=== PATIENT | male | born 1965 | race Caucasian/White ===

== ENCOUNTER 2017-03-24 11:14 | Emergency (ER) | payer MEDICARE, MEDICAID ==
[~2017-03-24] VITALS: Ht 172.7 cm; Wt 115.0 kg
[~2017-03-24 11:14] MED LIST: IBUP-1984 PO; OXYC-150 PO; PREG50CA PO
[2017-03-24] MEDS ORDERED: CIPR-259 PO (12:26)
[2017-03-24 13:33] VITALS: BP 151/94
== END 2017-03-24 13:56 | disposition home or self-care (01) ==
LOC: ER 11:15
DX: S61.211A Laceration without foreign body of left index finger without damage to nail, initial encounter (principal); N45.1 Epididymitis; N43.41 Spermatocele of epididymis, single; N18.6 End stage renal disease; G62.9 Polyneuropathy, unspecified; G89.29 Other chronic pain; Z99.2 Dependence on renal dialysis; Z94.0 Kidney transplant status; W18.30XA Fall on same level, unspecified, initial encounter; Y93.89 Activity, other specified; Y92.89 Other specified places as the place of occurrence of the external cause; Y99.8 Other external cause status
CPT/HCPCS: 76870; 99284

== ENCOUNTER 2017-03-31 12:07 | Emergency (ER) | payer MEDICARE, MEDICAID ==
[~2017-03-31] VITALS: Ht 172.7 cm; Wt 111.0 kg
[~2017-03-31 12:07] MED LIST changes: +CIPR-259 PO; -IBUP-1984 PO
[2017-03-31] MEDS ORDERED: TETanus/Pertussis (Acell)/Diphther VAC/PF (Tdap-Adult) 0.5ml syringe IM ONE (16:05)
[2017-03-31 16:24] VITALS: BP 178/112
== END 2017-03-31 16:25 | disposition home or self-care (01) ==
LOC: ER 12:08
DX: N50.89 Other specified disorders of the male genital organs (principal); E87.79 Other fluid overload; G62.9 Polyneuropathy, unspecified; N18.9 Chronic kidney disease, unspecified; G89.29 Other chronic pain; Z99.2 Dependence on renal dialysis; Z94.0 Kidney transplant status
CPT/HCPCS: 90471; 90715; 99283

== ENCOUNTER 2017-04-11 20:40 | Emergency (ER) | payer MEDICARE, MEDICAID ==
[~2017-04-11] VITALS: Ht 172.7 cm; Wt 109.0 kg
[~2017-04-11 20:40] MED LIST changes: -CIPR-259 PO
[2017-04-11 21:09] LABS: BASOPHILS % (AUTO) 0.2 % (0-1); EOSINOPHILS # (AUTO) 0.2 X10'3 (0-0.9); EOSINOPHILS % (AUTO) 2.3 % (0-6); HEMATOCRIT 30.9 % (42.0-52.0); HEMOGLOBIN 10.3 g/dl (14.0-17.9); LYMPHOCYTES # (AUTO) 1.2 X10'3 (1.1-4.8); LYMPHOCYTES % (AUTO) 16.8 % (21-51); MEAN CORPUSCULAR HEMOGLOBIN 31.2 PG (27.0-31.0); MEAN CORPUSCULAR HGB CONC 33.4 % (33.0-36.5); MEAN CORPUSCULAR VOLUME 93.5 FL (78-98); MEAN PLATELET VOLUME 6.9 FL (7.4-10.4); MONOCYTES # (AUTO) 0.4 X10'3 (0-0.9); MONOCYTES % (AUTO) 5.9 % (2-12); NEUTROPHILS # (AUTO) 5.1 X10'3 (1.8-7.7); NEUTROPHILS % (AUTO) 74.8 % (42-75); PLATELET COUNT 154 X10'3 (140-440); RED BLOOD COUNT 3.31 X10'6 (4.70-6.10); RED CELL DISTRIBUTION WIDTH 15.2 % (11.5-14.5); WHITE BLOOD COUNT 6.9 X10'3 (4.5-11.0)
[2017-04-11] MEDS ORDERED: mag hydrox/Alum hydrox/simeth 30ml oral suspension PO ONE (21:15)
[2017-04-11] MEDS ORDERED: famotidine 20mg tablet PO ONE (21:15)
[2017-04-11 21:20] LABS: PARTIAL THROMBOPLASTIN TIME 24 SECONDS (22-32); PROTHROMBIN TIME 10.4 SECONDS (9.0-12.0)
[2017-04-11 21:23] LABS: ALANINE AMINOTRANSFERASE 34 U/L (12-78); ALBUMIN 3.3 G/DL (3.4-5.0); ALBUMIN/GLOBULIN RATIO 0.9 (1.1-1.5); ALKALINE PHOSPHATASE 118 IU/L (46-116); ANION GAP 6 (8-16); ASPARTATE AMINO TRANSFERASE 24 U/L (10-37); BILIRUBIN,TOTAL 0.6 MG/DL (0.1-1.0); BLOOD UREA NITROGEN 39 MG/DL (7-18); BUN/CREATININE RATIO 6.3 (5.4-32.0); CALCIUM 8.8 MG/DL (8.5-10.1); CHLORIDE 93 MMOL/L (99-107); POTASSIUM 5.3 MMOL/L (3.5-5.1); SODIUM 131 MMOL/L (135-145); TOTAL CARBON DIOXIDE 31.8 MMOL/L (24-32); TOTAL PROTEIN 7.1 G/DL (6.4-8.2); eGFR 10 ML/MIN
[2017-04-11 21:25] LABS: GLUCOSE 489 MG/DL (70-104)
[2017-04-11] MEDS ORDERED: insulin regular, human 10 units/0.1 ml syringe IV ONE (21:30)
[2017-04-11] MEDS ORDERED: insulin regular, human 10 units/0.1 ml syringe SQ ONE (21:40)
[2017-04-11 22:36] VITALS: BP 150/68
== END 2017-04-11 22:41 | disposition home or self-care (01) ==
LOC: ER 20:41
DX: K21.9 Gastro-esophageal reflux disease without esophagitis (principal); N50.89 Other specified disorders of the male genital organs; R60.0 Localized edema; I12.0 Hypertensive chronic kidney disease with stage 5 chronic kidney disease or end stage renal disease; N18.6 End stage renal disease; Z99.2 Dependence on renal dialysis; Z94.0 Kidney transplant status; G89.29 Other chronic pain; G62.9 Polyneuropathy, unspecified; Z56.0 Unemployment, unspecified; Z88.5 Allergy status to narcotic agent
CPT/HCPCS: 36415; 71045; 80053; 84484; 85025; 85610; 85730; 93005; 96372; 99285; J1815

== ENCOUNTER 2019-05-07 06:20 | Day surgery (SDC) | payer MEDICARE, OTHER, MEDICAID ==
[~2019-05-07] VITALS: Ht 170.2 cm; Wt 99.4 kg
[2019-05-07] VITALS (8 sets, daily range): BP systolic 100–147; BP diastolic 61–81
[2019-05-07] MEDS ORDERED: normal saline 1000ml 1,000 ML IV SCH ×2 (06:50→16:54)
[2019-05-07] MEDS ORDERED: FOLI1TAB34 PO (07:01)
[2019-05-07] MEDS ORDERED: PREG50CA PO (07:01)
[2019-05-07] MEDS ORDERED: LANT1000 PO (07:01)
[2019-05-07] MEDS ORDERED: INSU100C10 SQ (07:01)
[2019-05-07] MEDS ORDERED: INSU100V9 SQ (07:01)
[2019-05-07] MEDS ORDERED: NITR0.4T51 SL (07:01)
[2019-05-07 07:41] LABS: ALBUMIN 3.3 G/DL (3.4-5.0); ANION GAP 19 (8-16); BLOOD UREA NITROGEN 68 MG/DL (7-18); BUN/CREATININE RATIO 6.3 (5.4-32.0); CALCIUM 7.2 MG/DL (8.5-10.1); CHLORIDE 95 MMOL/L (99-107); CREATININE 10.88 MG/DL (0.60-1.10); GLUCOSE 143 MG/DL (70-104); SODIUM 138 MMOL/L (135-145); eGFR 5 ML/MIN
[2019-05-07 07:45] LABS: POTASSIUM 6.8 MMOL/L (3.5-5.1)
[2019-05-07] MEDS ORDERED: insulin regular, human 10 units/0.1 ml syringe IV ONE (08:15)
[2019-05-07] MEDS ORDERED: albuterol 2.5 MG/3 ML nebule NEB ONE (08:15)
[2019-05-07] MEDS ORDERED: calcium chloride 100 MG/1 ML inj IV ONE (08:15)
[2019-05-07] MEDS ORDERED: dextrose 50%-water 50ml dispensing syringe IV ONE (08:15)
[2019-05-07] MEDS ORDERED: tPA-cathflo 2 MG/2 ml IV flush ONE ×3 (09:44→13:27)
[2019-05-07] MEDS ORDERED: albuterol 2.5 MG/3 ML nebule CONTNEB ONE (09:45)
[2019-05-07] MEDS ORDERED: midazolam 2 mg/2 ml injection ONE (12:37)
[2019-05-07] MEDS ORDERED: fentaNYL/PF 50MCG/1 ML 2ML syringe ONE ×2 (12:38→13:50)
[2019-05-07] MEDS ORDERED: LIDOcaine 1%/PF 5ML 10 MG/ML VIAL ONE (12:53)
[2019-05-07] MEDS ORDERED: iohexol 300mg/ml 100ml inj. ONE ×2 (12:53→14:47)
[2019-05-07] MEDS ORDERED: heparin 1,000 UNITS/NS 500ml 500 ML ONE ×3 (13:02→15:31)
[2019-05-07] MEDS ORDERED: heparin 1,000unit/ml 10ml vial 10 ML ONE (14:44)
--- NOTE | 2019-05-07 17:50 | NUR ---
Dr. Haney at bedside to remove purse string suture. Upper string removed per MD, lower string continue to monitor for 15 minutes per MD prior to removing. No s/s bleeding to left arm at this time.
[2019-05-07] MEDS ORDERED: furosemide 40mg/4ml inj IV SCH (20:00)
== END 2019-05-07 19:30 | disposition home or self-care (01) ==
LOC: SSTAY O 06:20
PROVIDERS: ATTEND Radiology Vascular & Interventional Radiology
DX: T82.868A Thrombosis due to vascular prosthetic devices, implants and grafts, initial encounter (principal); E11.22 Type 2 diabetes mellitus with diabetic chronic kidney disease; N18.6 End stage renal disease; Z79.4 Long term (current) use of insulin; Z79.899 Other long term (current) drug therapy; Y83.2 Surgical operation with anastomosis, bypass or graft as the cause of abnormal reaction of the patient, or of later complication, without mention of misadventure at the time of the procedure; Y92.89 Other specified places as the place of occurrence of the external cause
CPT/HCPCS: 36415; 36905; 80048; 82948; 84132; 94640; 94760; 99152; 99153; C1725; C1769; C1894; J1644; J1815; J2250; J2997; J3010; J7030; Q9967

== ENCOUNTER 2019-10-24 11:56 | Day surgery (SDC) | payer MEDICARE, OTHER, MEDICAID ==
[~2019-10-24] VITALS: Ht 172.7 cm; Wt 95.1 kg
[~2019-10-24 11:56] MED LIST changes: +FOLI1TAB34 PO; +INSU100C10 SQ; +INSU100V9 SQ; +LANT1000 PO; +NITR0.4T51 SL
[2019-10-24 12:10] VITALS: BP 70/54
[2019-10-24] MEDS ORDERED: normal saline 1000ml 1,000 ML IV SCH (12:20)
[2019-10-24] MEDS ORDERED: FAMO40TA58 PO (12:27)
[2019-10-24] MEDS ORDERED: MIDO10TA PO (12:30)
[2019-10-24] MEDS ORDERED: OXYC-658 PO ×2 (12:31→12:32)
[2019-10-24] MEDS ORDERED: LYR25C PO (12:32)
[2019-10-24] MEDS ORDERED: ONDA4TAB6 PO (12:33)
[2019-10-24 13:50] LABS: BASOPHILS # (AUTO) 0.1 X10'3 (0-0.2); BASOPHILS % (AUTO) 0.9 % (0-1); EOSINOPHILS # (AUTO) 0.1 X10'3 (0-0.9); HEMATOCRIT 28.3 % (42.0-52.0); HEMOGLOBIN 8.8 g/dl (14.0-17.9); LYMPHOCYTES # (AUTO) 1.2 X10'3 (1.1-4.8); MEAN CORPUSCULAR HGB CONC 31.1 g/dL (33.0-36.5); MEAN CORPUSCULAR VOLUME 93.1 FL (78-98); MEAN PLATELET VOLUME 8.7 FL (7.4-10.4); NEUTROPHILS # (AUTO) 4.5 X10'3 (1.8-7.7); NEUTROPHILS % (AUTO) 65.1 % (42-75); PLATELET COUNT 132 X10'3 (140-440); RED BLOOD COUNT 3.03 X10'6 (4.70-6.10); RED CELL DISTRIBUTION WIDTH 19.2 % (11.5-14.5); WHITE BLOOD COUNT 6.9 X10'3 (4.5-11.0)
[2019-10-24 14:00] LABS: ALBUMIN 3.3 G/DL (3.4-5.0); ANION GAP 17 (8-16); BLOOD UREA NITROGEN 55 MG/DL (7-18); BUN/CREATININE RATIO 7.5 (5.4-32.0); CALCIUM 9.3 MG/DL (8.5-10.1); CHLORIDE 99 MMOL/L (99-107); CREATININE 7.35 MG/DL (0.60-1.10); GLUCOSE 92 MG/DL (70-104); SODIUM 137 MMOL/L (135-145); TOTAL CARBON DIOXIDE 21.4 MMOL/L (24-32); eGFR 8 ML/MIN
[2019-10-24 14:30] LABS: ANISOCYTOSIS 2+; PLATELET ESTIMATE DECREASED; TOTAL CELLS COUNTED 100
[2019-10-24] MEDS ORDERED: LIDOcaine 1%/PF 5ML 10 MG/ML VIAL ONE (14:42)
[2019-10-24] MEDS ORDERED: midazolam 2 mg/2 ml injection ONE ×2 (14:42→14:53)
[2019-10-24] MEDS ORDERED: iohexol 300mg/ml 100ml inj. ONE (14:42)
[2019-10-24] MEDS ORDERED: heparin 1,000 UNITS/NS 500ml 500 ML ONE (14:42)
[2019-10-24] MEDS ORDERED: fentaNYL/PF 50MCG/1 ML 2ML syringe ONE ×2 (14:42→14:53)
[2019-10-24] MEDS ORDERED: tPA-cathflo 2 MG/2 ml IV flush ONE (15:02)
[2019-10-24] MEDS ORDERED: heparin 1,000unit/ml 10ml vial 10 ML ONE (15:33)
[2019-10-24 16:25] VITALS: BP 78/59
[2019-10-24 16:45] VITALS: BP 66/34
[2019-10-24] MEDS: midodrine 5mg tablet PO PRN ×2 (16:55→16:56)
[2019-10-24 17:00] VITALS: BP 70/50
[2019-10-24 17:15] VITALS: BP 73/52
== END 2019-10-24 17:45 | disposition home or self-care (01) ==
LOC: SSTAY O 11:56
PROVIDERS: ATTEND Radiology Vascular & Interventional Radiology
DX: T82.868A Thrombosis due to vascular prosthetic devices, implants and grafts, initial encounter (principal); E11.22 Type 2 diabetes mellitus with diabetic chronic kidney disease; N18.6 End stage renal disease; Z79.4 Long term (current) use of insulin; Z79.899 Other long term (current) drug therapy; Z79.01 Long term (current) use of anticoagulants; Y83.2 Surgical operation with anastomosis, bypass or graft as the cause of abnormal reaction of the patient, or of later complication, without mention of misadventure at the time of the procedure; Y92.89 Other specified places as the place of occurrence of the external cause
CPT/HCPCS: 36415; 36905; 80048; 85025; 85610; 99152; 99153; C1725; C1769; C1894; J1644; J2250; J2997; J3010; J7030; Q9967

== ENCOUNTER 2019-12-30 11:55 | Outpatient (CLI) | payer MEDICARE, OTHER, MEDICAID ==
[~2019-12-30 11:55] MED LIST changes: +FAMO40TA58 PO; +MIDO10TA PO; +ONDA4TAB6 PO; -OXYC-150 PO; -PREG50CA PO
[2019-12-30] MEDS ORDERED: LIDOcaine 2% 5ml jelly ONE ×2 (14:00)
[2020-01-06] MEDS ORDERED: LOPE2TAB25 PO (20:52)
[2020-01-06] MEDS ORDERED: RIFA550T PO (20:52)
[2020-01-06] MEDS ORDERED: HYDR20TA2 PO (20:52)
[2020-01-06] MEDS ORDERED: MAG-154 PO (20:52)
[2020-01-06] MEDS ORDERED: PER5325T PO (20:52)
[2020-01-06] MEDS ORDERED: INSU100V13 SQ (20:52)
[2020-01-06] MEDS ORDERED: LYR25C PO ×2 (20:52)
[2020-01-06] MEDS ORDERED: LANTUS SQ (20:52)
[2020-01-06] MEDS ORDERED: INSU100I45 SQ (20:52)
[2020-01-06] MEDS ORDERED: BISA10SU60 RC (20:52)
[2020-01-06] MEDS ORDERED: NUT.237L66 (20:52)
[2020-01-06] MEDS ORDERED: CARB15DR91 LEFT EAR (20:52)
[2020-01-06] MEDS ORDERED: ALBU8HFA PO (20:52)
[2020-01-06] MEDS ORDERED: SENN-263 PO (20:52)
[2020-01-06] MEDS ORDERED: POLY119P2 PO (20:52)
[2020-01-06] MEDS ORDERED: NUT.237L84 (20:52)
[2020-01-06] MEDS ORDERED: MELA1TAB28 PO (20:52)
== END 2019-12-30 15:41 | disposition home or self-care (01) ==
LOC: WOUND CARE 11:55 → EDSTATUS 13:00 → WOUND CARE 15:41
PROVIDERS: ATTEND Nurse Practitioner Family
DX: E11.621 Type 2 diabetes mellitus with foot ulcer (principal); L97.521 Non-pressure chronic ulcer of other part of left foot limited to breakdown of skin; L98.492 Non-pressure chronic ulcer of skin of other sites with fat layer exposed; L08.89 Other specified local infections of the skin and subcutaneous tissue; N48.29 Other inflammatory disorders of penis; B35.6 Tinea cruris; E11.649 Type 2 diabetes mellitus with hypoglycemia without coma; E78.5 Hyperlipidemia, unspecified; E11.22 Type 2 diabetes mellitus with diabetic chronic kidney disease; E11.51 Type 2 diabetes mellitus with diabetic peripheral angiopathy without gangrene; I12.0 Hypertensive chronic kidney disease with stage 5 chronic kidney disease or end stage renal disease; N18.6 End stage renal disease; I25.10 Atherosclerotic heart disease of native coronary artery without angina pectoris; I25.2 Old myocardial infarction; J44.9 Chronic obstructive pulmonary disease, unspecified; K55.059 Acute (reversible) ischemia of intestine, part and extent unspecified; E27.40 Unspecified adrenocortical insufficiency; K74.60 Unspecified cirrhosis of liver; Z79.4 Long term (current) use of insulin; Z94.0 Kidney transplant status; Z87.891 Personal history of nicotine dependence; Z99.2 Dependence on renal dialysis
CPT/HCPCS: G0463

== ENCOUNTER 2020-01-16 11:50 | Outpatient (CLI) | payer MEDICARE, OTHER, MEDICAID ==
[~2020-01-16 11:50] MED LIST changes: +ALBU8HFA PO; +BISA10SU60 RC; +CARB15DR91 LEFT EAR; -FOLI1TAB34 PO; +HYDR20TA2 PO; -INSU100C10 SQ; +INSU100I45 SQ; -INSU100V9 SQ; +LANTUS SQ; +LOPE2TAB25 PO; +LYR25C PO; +MELA1TAB28 PO; +NUT.237L84; +PER5325T PO; +POLY119P2 PO; +RIFA550T PO; +SENN-263 PO
[2020-01-16] MEDS ORDERED: LIDOcaine 2% 5ml jelly ONE (13:37)
== END 2020-01-16 23:59 | disposition home or self-care (01) ==
LOC: WOUND CARE 11:50
PROVIDERS: ATTEND Nurse Practitioner
DX: E11.621 Type 2 diabetes mellitus with foot ulcer (principal); L97.521 Non-pressure chronic ulcer of other part of left foot limited to breakdown of skin; L98.492 Non-pressure chronic ulcer of skin of other sites with fat layer exposed; L08.89 Other specified local infections of the skin and subcutaneous tissue; N48.29 Other inflammatory disorders of penis; B35.6 Tinea cruris; E11.649 Type 2 diabetes mellitus with hypoglycemia without coma; E78.5 Hyperlipidemia, unspecified; E11.22 Type 2 diabetes mellitus with diabetic chronic kidney disease; E11.51 Type 2 diabetes mellitus with diabetic peripheral angiopathy without gangrene; I12.0 Hypertensive chronic kidney disease with stage 5 chronic kidney disease or end stage renal disease; N18.6 End stage renal disease; I25.10 Atherosclerotic heart disease of native coronary artery without angina pectoris; I25.2 Old myocardial infarction; J44.9 Chronic obstructive pulmonary disease, unspecified; K55.059 Acute (reversible) ischemia of intestine, part and extent unspecified; E27.40 Unspecified adrenocortical insufficiency; K74.60 Unspecified cirrhosis of liver; Z79.4 Long term (current) use of insulin; Z94.0 Kidney transplant status; Z87.891 Personal history of nicotine dependence; Z99.2 Dependence on renal dialysis
CPT/HCPCS: 97597

== ENCOUNTER 2020-01-20 09:52 | Outpatient (CLI) | payer MEDICARE, OTHER, MEDICAID | END 2020-01-20 23:59 | disposition home or self-care (01) | LOC: WOUND CARE 09:52 → EDSTATUS 11:00 → WOUND CARE 23:59 | PROVIDERS: ATTEND Nurse Practitioner | DX: E11.621 Type 2 diabetes mellitus with foot ulcer (principal); L97.522 Non-pressure chronic ulcer of other part of left foot with fat layer exposed; L98.492 Non-pressure chronic ulcer of skin of other sites with fat layer exposed; L08.89 Other specified local infections of the skin and subcutaneous tissue; N48.29 Other inflammatory disorders of penis; B35.6 Tinea cruris; E11.649 Type 2 diabetes mellitus with hypoglycemia without coma; E78.5 Hyperlipidemia, unspecified; E11.51 Type 2 diabetes mellitus with diabetic peripheral angiopathy without gangrene; E11.40 Type 2 diabetes mellitus with diabetic neuropathy, unspecified; I25.10 Atherosclerotic heart disease of native coronary artery without angina pectoris; E11.22 Type 2 diabetes mellitus with diabetic chronic kidney disease; I12.0 Hypertensive chronic kidney disease with stage 5 chronic kidney disease or end stage renal disease; N18.6 End stage renal disease; I25.2 Old myocardial infarction; K74.60 Unspecified cirrhosis of liver; J44.9 Chronic obstructive pulmonary disease, unspecified; K55.059 Acute (reversible) ischemia of intestine, part and extent unspecified; E27.40 Unspecified adrenocortical insufficiency; Z79.4 Long term (current) use of insulin; Z94.0 Kidney transplant status; Z87.891 Personal history of nicotine dependence; Z99.2 Dependence on renal dialysis | CPT/HCPCS: 82948; G0463 ==

== ENCOUNTER 2020-01-22 08:56 | Inpatient (IN) | payer MEDICARE, OTHER, MEDICAID ==
[~2020-01-22] VITALS: Ht 170.2 cm; Wt 108.2 kg
[2020-01-22] VITALS (8 sets, daily range): BP systolic 74–123; BP diastolic 25–91
--- NOTE | 2020-01-22 09:15 | NUR ---
DR ARREDONDO IN TO ASSESS PATIENT AT THIS TIME.
[2020-01-22] MEDS ORDERED: naloxone 0.4 mg/ml inj IV PRN (09:20)
[2020-01-22] MEDS ORDERED: naloxone 0.4 mg/ml inj IV ONE (09:25)
[2020-01-22] MEDS ORDERED: normal saline 1000ML IV soln IVB ONE (09:40)
--- NOTE | 2020-01-22 10:04 | NUR ---
Patient on bedpan attempting to have a BM. precision dyer with patient at bedside.
[2020-01-22 10:10] LABS: EOSINOPHILS % (AUTO) 0.3 % (0-6); MEAN CORPUSCULAR HEMOGLOBIN 30.8 PG (27.0-31.0); MONOCYTES # (AUTO) 0.7 X10'3 (0-0.9)
[2020-01-22 10:12] LABS: BASOPHILS % (AUTO) 0.3 % (0-1); HEMATOCRIT 31.9 % (42.0-52.0); LYMPHOCYTES # (AUTO) 1.8 X10'3 (1.1-4.8); LYMPHOCYTES % (AUTO) 17.7 % (21-51); MEAN CORPUSCULAR HGB CONC 31.4 g/dL (33.0-36.5); MEAN CORPUSCULAR VOLUME 98.3 FL (78-98); MEAN PLATELET VOLUME 8.5 FL (7.4-10.4); MONOCYTES % (AUTO) 7.1 % (2-12); NEUTROPHILS # (AUTO) 7.6 X10'3 (1.8-7.7); NEUTROPHILS % (AUTO) 74.6 % (42-75); PLATELET COUNT 101 X10'3 (140-440); RED BLOOD COUNT 3.24 X10'6 (4.70-6.10); RED CELL DISTRIBUTION WIDTH 26.7 % (11.5-14.5); WHITE BLOOD COUNT 10.2 X10'3 (4.5-11.0)
[2020-01-22 10:15] LABS: ANION GAP 27 (8-16); BLOOD UREA NITROGEN 39 MG/DL (7-18); BUN/CREATININE RATIO 11.2 (5.4-32.0); CHLORIDE 105 MMOL/L (99-107); CREATININE 3.48 MG/DL (0.60-1.10); GLUCOSE 51 MG/DL (70-104); POTASSIUM 3.7 MMOL/L (3.5-5.1); SODIUM 145 MMOL/L (135-145); eGFR 18 ML/MIN
[2020-01-22 10:16] LABS: ALANINE AMINOTRANSFERASE 25 U/L (12-78); ALBUMIN 2.6 G/DL (3.4-5.0); ALBUMIN/GLOBULIN RATIO 0.6 (1.1-1.5); ALKALINE PHOSPHATASE 157 IU/L (46-116); ASPARTATE AMINO TRANSFERASE 25 U/L (10-37); BILIRUBIN,TOTAL 1.4 MG/DL (0.1-1.0); CALCIUM 7.5 MG/DL (8.5-10.1); LIPASE < 50 U/L (73-393)
[2020-01-22 10:23] LABS: TOTAL CARBON DIOXIDE 13.2 MMOL/L (24-32)
[2020-01-22 10:27] LABS: LARGE PLATELETS MODERATE; NUCLEATED RED BLOOD CELLS 6 /100WBC (0-0); PLATELET ESTIMATE DECREASED; TOTAL CELLS COUNTED 100
[2020-01-22] MEDS ORDERED: dextrose 50%-water 50ml dispensing syringe IV ONE ×5 (10:27→17:39)
[2020-01-22 10:28] LABS: ANISOCYTOSIS 3+; POLYCHROMASIA 2+
--- NOTE | 2020-01-22 10:28 | NUR ---
Blood sugar noted to be 51 on the lab draw, Dr. Conroy notified and 1/2 amp of D50 ordered and given.
[2020-01-22] MEDS ORDERED: aspirin 81mg tab.chew PO ONE (10:35)
--- NOTE | 2020-01-22 10:38 | NUR ---
Elevated troponin noted, EKG performed.
[2020-01-22] MEDS ORDERED: heparin 25,000 UNIT/250ml bag 250 ML IV SCH (11:05)
[2020-01-22] MEDS ORDERED: heparin 10,000 units/1 ML INJ IV ONE ×2 (11:05→11:25)
--- NOTE | 2020-01-22 11:05 | NUR ---
Consulted with Dr. Conroy regarding patient and potential need for ABG. Dr. Conroy states she will order an ABG
--- NOTE | 2020-01-22 11:09 | NUR ---
Dr. Conroy notified of saline bolus completion and current vitals. No additional fluids ordered at this time. ABG requested due to poor perfusion and inability to obtain accurate SpO2.
--- NOTE | 2020-01-22 11:20 | NUR ---
Blood sugar 72, Dr. Conroy notified and another 1/2 amp of D50 ordered.
[2020-01-22 11:24] LABS: PARTIAL THROMBOPLASTIN TIME 36 SECONDS (22-32)
[2020-01-22] MEDS ORDERED: magnesium hydroxide 30ml (MOM) UD suspension PO PRN (11:45)
[2020-01-22] MEDS ORDERED: acetaminophen 325mg tablet PO PRN ×2 (11:45)
[2020-01-22] MEDS ORDERED: bisacodyl 10mg suppository rectal RC PRN (11:45)
[2020-01-22] MEDS ORDERED: ipratropium/albuterol 3ml nebule NEB PRN (11:45)
--- NOTE | 2020-01-22 11:59 | NUR ---
[employer]CE AT BEDSIDE.
[2020-01-22] MEDS: pantoprazole 40 MG vial IV SCH (12:20)
[2020-01-22] MEDS: enoxaparin 100mg/ml syringe SUBCUT SCH (12:20)
[2020-01-22] MEDS ORDERED: vancomycin/NS 1 GM ADD-VANTAGE 250 ML IV ONE (12:25)
[2020-01-22] MEDS ORDERED: piperacillin/tazo 3.375gm/50ml 50 ML IV ONE (12:25)
--- NOTE | 2020-01-22 12:42 | NUR ---
Dr. Hart at bedside. Verbal order for NS bolus of 250mL x2 received secondary to pt's hypovolemia and hypotension.
--- NOTE | 2020-01-22 14:00 | NUR ---
Pt is difficult to get O2 sats due to severe PVD. Placing on fingers and ear and when it gets in the right position Sats jump up to 94-96 % on 2L L O2 nc
--- NOTE | 2020-01-22 14:30 | NUR ---
Assessment completed on patient and this nurse agrees with [employer]ighway painter helper with no changes noted. Pt is A&O x 2-3 BP running very low NS bolos's will be continued and monitored to increase MAP,
[2020-01-22] MEDS ORDERED: normal saline 500ml IV soln 500 ML IV ONE (15:30)
--- NOTE | 2020-01-22 15:30 | NUR ---
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 PER DR SARMIENTO OK TO PLACE EXTENDED PIV. ARMANDO PICC RN
[2020-01-22] MEDS: piperacillin/tazo 3.375gm/50ml 50 ML IV SCH (16:00)
[2020-01-22] MEDS: vancomycin/NS 1 GM ADD-VANTAGE 250 ML IV SCH (16:14)
[2020-01-22] MEDS ORDERED: sodium chloride inj. 154 MEQ in Dextrose 10%-water IV solution 961.5 ML IV SCH (16:20)
--- NOTE | 2020-01-22 18:30 | NUR ---
Problems reprioritized. Patient report given, questions answered & plan of care reviewed with Shaunna RN.
[2020-01-22] MEDS: heparin, porcine 5000 units/ml vial SQ SCH (20:26)
[2020-01-22] MEDS: hydrocortisone sod succ/PF 100mg/2ml inj. IV SCH (20:26)
[2020-01-23] VITALS (26 sets, daily range): BP systolic 73–138; BP diastolic 27–102
[2020-01-23] MEDS: piperacillin/tazo 3.375gm/50ml 50 ML IV SCH ×3 (00:02→15:50)
[2020-01-23 01:47] LABS: BASOPHILS % (AUTO) 0.1 % (0-1); EOSINOPHILS % (AUTO) 0.1 % (0-6); HEMOGLOBIN 11.1 g/dl (14.0-17.9); MEAN CORPUSCULAR HEMOGLOBIN 29.8 PG (27.0-31.0); MONOCYTES # (AUTO) 0.4 X10'3 (0-0.9); RED BLOOD COUNT 3.73 X10'6 (4.70-6.10)
[2020-01-23 01:49] LABS: LYMPHOCYTES # (AUTO) 1.1 X10'3 (1.1-4.8); LYMPHOCYTES % (AUTO) 10.4 % (21-51); MEAN CORPUSCULAR HGB CONC 30.9 g/dL (33.0-36.5); MEAN CORPUSCULAR VOLUME 96.5 FL (78-98); MEAN PLATELET VOLUME 8.8 FL (7.4-10.4); MONOCYTES % (AUTO) 3.9 % (2-12); NEUTROPHILS # (AUTO) 9.1 X10'3 (1.8-7.7); NEUTROPHILS % (AUTO) 85.5 % (42-75); PLATELET COUNT 96 X10'3 (140-440); RED CELL DISTRIBUTION WIDTH 26.3 % (11.5-14.5); WHITE BLOOD COUNT 10.6 X10'3 (4.5-11.0)
[2020-01-23 01:58] LABS: ALANINE AMINOTRANSFERASE 31 U/L (12-78); ALBUMIN 3.2 G/DL (3.4-5.0); ALBUMIN/GLOBULIN RATIO 0.6 (1.1-1.5); ALKALINE PHOSPHATASE 173 IU/L (46-116); ANION GAP 24 (8-16); ASPARTATE AMINO TRANSFERASE 32 U/L (10-37); BILIRUBIN,TOTAL 1.7 MG/DL (0.1-1.0); BLOOD UREA NITROGEN 51 MG/DL (7-18); BUN/CREATININE RATIO 11.1 (5.4-32.0); CHLORIDE 101 MMOL/L (99-107); GLUCOSE 233 MG/DL (70-104); MAGNESIUM 2.4 MG/DL (1.5-2.4); PHOSPHORUS 6.3 MG/DL (2.3-4.5); POTASSIUM 4.9 MMOL/L (3.5-5.1); SODIUM 141 MMOL/L (135-145); TOTAL PROTEIN 8.3 G/DL (6.4-8.2); eGFR 13 ML/MIN
[2020-01-23] MEDS: hydrocortisone sod succ/PF 100mg/2ml inj. IV SCH ×4 (02:10→20:00)
--- NOTE | 2020-01-23 06:19 | NUR ---
Problems reprioritized. Patient report given, questions answered & plan of care reviewed with Steffi MEEKS.
--- NOTE | 2020-01-23 06:31 | NUR ---
Patient in room ICU 2038. I have received report from Shaunna MEEKS and had the opportunity to ask questions and assume patient care.
[2020-01-23 07:07] LABS: ANISOCYTOSIS 3+; NUCLEATED RED BLOOD CELLS 7 /100WBC (0-0); PLATELET ESTIMATE DECREASED; TOTAL CELLS COUNTED 100
[2020-01-23 07:08] LABS: LARGE PLATELETS FEW; POLYCHROMASIA 1+
[2020-01-23] MEDS ORDERED: heparin 1,000unit/ml 10ml vial 10 ML IV ONE (07:10)
[2020-01-23] MEDS ORDERED: epoetin 20,000 units/ml inj IV ONE (07:10)
[2020-01-23] MEDS ORDERED: heparin 1,000 units/ml 10ml inj IV ONE (07:10)
[2020-01-23] MEDS ORDERED: albumin (human) 25% 100ml IV 100 ML IV PRN (07:10)
[2020-01-23] MEDS: pantoprazole 40 MG vial IV SCH (07:31)
[2020-01-23] MEDS: enoxaparin 100mg/ml syringe SUBCUT SCH (08:00)
[2020-01-23] MEDS ORDERED: midodrine 5mg tablet PO SCH (09:00)
--- NOTE | 2020-01-23 10:28 | NUR ---
during rounds I received verbal orders to place pt on carb controlled renal diet, midodrine 20mg 3X daily, and to hold D10 for now due to BG of 225 this morning. If D10 is needed he would like it to be restarted at 30 mls/hr
[2020-01-23] MEDS ORDERED: DEXTROSE 10 % AND 0.45 % NACL 1,000 ML IV PRN (11:05)
[2020-01-23] MEDS ORDERED: nitroGLYCERIN 0.4mg SUBLingual tab SL PRN (11:30)
[2020-01-23] MEDS ORDERED: ondansetron 4mg rapidly disintigrating tab PO PRN (11:30)
--- NOTE | 2020-01-23 12:02 | NUR ---
DM Consult: Pt admit DX sepsis, acidosis, AMS, hx ESRD on HD, T2DM A1C 6.7, chronic hypotension, and non-compliance w/ prior calciphylaxis per cold saw operator at rounds. Glu 225; TAMERA d/w regarding carb controlled diet addition given hx since currently on renal diet. PO 25% avg first dinner last night pending further PO this admit. TAMERA calvo/w regarding phos binder since 6.3 today. Will continue to monitor for additional protein needs on HD. Rec: 1. advance diet as medically indicated to renal/carb controlled 2. monitor for ONS needs pending further PO hx on HD 3. phos binder w/ meals IF MD agreeable 4. routine bowel care 5. wt per rx Addendum: 01/23/20 at [address] Amended: Links added.
[2020-01-23] MEDS: heparin, porcine 5000 units/ml vial SQ SCH ×2 (12:53→20:00)
[2020-01-23] MEDS: midodrine 5mg tablet PO SCH ×2 (12:54→15:50)
[2020-01-23] MEDS ORDERED: MIDODRINE HCL PO SCH (13:00)
[2020-01-23] MEDS: mineral oil/petrolatum, white cream 113gm jar TP SCH (16:39)
--- NOTE | 2020-01-23 17:46 | NUR ---
Patient pulled out PIV field start.
--- NOTE | 2020-01-23 18:23 | NUR ---
Patient in room ICU 2038. I have received report from Emmie MEEKS and had the opportunity to ask questions and assume patient care.
--- NOTE | 2020-01-23 18:23 | NUR ---
Problems reprioritized. Patient report given, questions answered & plan of care reviewed with Tori MEEKS and Sujata MEEKS.
[2020-01-23] MEDS: pregabalin 25mg capsule PO SCH (20:17)
[2020-01-23] MEDS: rifaximin 550mg tablet PO SCH (20:19)
--- NOTE | 2020-01-23 20:20 | NUR ---
Patient took all PO medications. However, patient refused his steroids and heparin. I educated patient on medications and importance of the medication as well as the side effects.
--- NOTE | 2020-01-23 21:30 | NUR ---
Patient has been noncompliant to care this evenining. He has refused wound care at 1900, as well as a bed bath tonight. I educated patient on importance of preventing further skin breakdown and importance of bathing.
[2020-01-24] VITALS (25 sets, daily range): BP systolic 61–135; BP diastolic 24–77
[2020-01-24] MEDS: piperacillin/tazo 3.375gm/50ml 50 ML IV SCH ×3 (01:01→17:20)
[2020-01-24] MEDS: hydrocortisone sod succ/PF 100mg/2ml inj. IV SCH ×4 (01:01→19:10)
[2020-01-24] MEDS: midodrine 5mg tablet PO SCH ×3 (01:01→17:20)
--- NOTE | 2020-01-24 02:42 | NUR ---
patient has been using inappropriate language. As I was repositioning his blood pressure cuff to get a better reading, he said, "somebody is going to get hit" and "Get out of here." I assured the patient that we keep the environment safe here and that he is safe. I will continue to monitor the patient. The patient is not compliant.
[2020-01-24 02:59] LABS: EOSINOPHILS % (AUTO) 0 % (0-6); HEMOGLOBIN 11.2 g/dl (14.0-17.9)
[2020-01-24 03:02] LABS: BASOPHILS % (AUTO) 0.3 % (0-1); HEMATOCRIT 35.2 % (42.0-52.0); LYMPHOCYTES # (AUTO) 0.8 X10'3 (1.1-4.8); LYMPHOCYTES % (AUTO) 7.9 % (21-51); MEAN CORPUSCULAR HEMOGLOBIN 30.4 PG (27.0-31.0); MEAN CORPUSCULAR HGB CONC 31.7 g/dL (33.0-36.5); MEAN CORPUSCULAR VOLUME 95.7 FL (78-98); MONOCYTES # (AUTO) 0.6 X10'3 (0-0.9); MONOCYTES % (AUTO) 6.5 % (2-12); NEUTROPHILS # (AUTO) 8.5 X10'3 (1.8-7.7); NEUTROPHILS % (AUTO) 85.3 % (42-75); PLATELET COUNT 98 X10'3 (140-440); RED BLOOD COUNT 3.68 X10'6 (4.70-6.10); RED CELL DISTRIBUTION WIDTH 26.4 % (11.5-14.5)
[2020-01-24 03:19] LABS: ALANINE AMINOTRANSFERASE 28 U/L (12-78); ALBUMIN 2.9 G/DL (3.4-5.0); ALBUMIN/GLOBULIN RATIO 0.6 (1.1-1.5); ALKALINE PHOSPHATASE 160 IU/L (46-116); ANION GAP 20 (8-16); ASPARTATE AMINO TRANSFERASE 20 U/L (10-37); BILIRUBIN,TOTAL 1.4 MG/DL (0.1-1.0); BLOOD UREA NITROGEN 46 MG/DL (7-18); CALCIUM 9.4 MG/DL (8.5-10.1); CHLORIDE 99 MMOL/L (99-107); CREATININE 4.17 MG/DL (0.60-1.10); GLUCOSE 185 MG/DL (70-104); MAGNESIUM 2.4 MG/DL (1.5-2.4); PHOSPHORUS 6.1 MG/DL (2.3-4.5); POTASSIUM 4.6 MMOL/L (3.5-5.1); SODIUM 138 MMOL/L (135-145); TOTAL CARBON DIOXIDE 18.9 MMOL/L (24-32); eGFR 15 ML/MIN
[2020-01-24 04:37] LABS: ANISOCYTOSIS 3+; NUCLEATED RED BLOOD CELLS 9 /100WBC (0-0); PLATELET ESTIMATE DECREASED; TOTAL CELLS COUNTED 100
[2020-01-24 04:38] LABS: LARGE PLATELETS FEW; POLYCHROMASIA 1+
[2020-01-24 04:42] LABS: HYPOCHROMASIA 1+
[2020-01-24 04:43] LABS: STOMATOCYTES FEW; TARGET CELLS 1+
--- NOTE | 2020-01-24 05:49 | NUR ---
[place] Medication Administration: For this medication-pass time frame, all medication were reviewed, dispensed, administered and documented per hospital policy by Sujata MEEKS. [place] documentation: I have reviewed with all interventions, assessments performed and documented by Sujata MEEKS.
--- NOTE | 2020-01-24 06:23 | NUR ---
Problems reprioritized. Patient report given, questions answered & plan of care reviewed with Kim MEEKS.
--- NOTE | 2020-01-24 06:25 | NUR ---
Patient in room ICU 2038. I have received report from JEANNA Valle and JEANNA Qureshi and had the opportunity to ask questions and assume patient care. Pt resting comfortably.
[2020-01-24] MEDS: pantoprazole 40mg Tablet.DR PO SCH (07:31)
[2020-01-24] MEDS: rifaximin 550mg tablet PO SCH ×2 (07:31→19:11)
[2020-01-24] MEDS: pregabalin 25mg capsule PO SCH ×2 (07:31→19:12)
[2020-01-24] MEDS: mineral oil/petrolatum, white cream 113gm jar TP SCH (07:32)
[2020-01-24] MEDS: heparin, porcine 5000 units/ml vial SQ SCH ×2 (08:00→19:11)
[2020-01-24] MEDS ORDERED: albumin (human) 25% 100 ML IV solution IV ONE ×3 (08:45→10:45)
[2020-01-24] MEDS ORDERED: NORepinephrine 8mg/ 250ml NS 250 ML IV SCH (08:50)
--- NOTE | 2020-01-24 10:45 | NUR ---
Triple Lumen PowerPICC Provena Catheter placed in Patient's Right Upper Arm (Basilic). Patient tolerated procedure well. 46cm Length, 6cm Out, 32cm Arm Circ. REF [id number], LOT [id number], Exp. 12/24/20
[2020-01-24] MEDS: NORepinephrine 8mg/ 250ml NS 250 ML IV SCH (11:27)
--- NOTE | 2020-01-24 12:42 | NUR ---
Per Dr Ordonez's orders, because CVP is 42 and pt is tolerating low dose Levophed well, cancel two additional albumin orders. I will continue to monitor patient's blood pressure closely.
[2020-01-24 14:11] LABS: ABG HCO3 12.9 mmol/L (22.0-26.0); ABG PCO2 (T) 27.3 mmHg (35.0-48.0); ABG PO2 (T) 286.3 mmHg (75.0-100.0); FCOHb 1.4 % (0.0-3.9); FMetHb 0.3 % (0.0-1.5); FO2Hb 98.3 % (94-97); TOTAL HEMOGLOBIN 13.8 G/dl (14.0-18.0)
[2020-01-24 14:17] LABS: HEMATOCRIT 39.5 % (42.0-52.0); HEMOGLOBIN 12.5 g/dl (14.0-17.9); MEAN CORPUSCULAR HEMOGLOBIN 30.4 PG (27.0-31.0); MEAN CORPUSCULAR HGB CONC 31.5 g/dL (33.0-36.5); MEAN CORPUSCULAR VOLUME 96.4 FL (78-98); MEAN PLATELET VOLUME 9.1 FL (7.4-10.4); PLATELET COUNT 125 X10'3 (140-440); RED CELL DISTRIBUTION WIDTH 26.6 % (11.5-14.5)
[2020-01-24 14:25] LABS: LACTIC SEPSIS 2.1 MMOL/L (0.4-2.0)
[2020-01-24 14:27] LABS: ALBUMIN 3.5 G/DL (3.4-5.0); ANION GAP 20 (8-16); BLOOD UREA NITROGEN 51 MG/DL (7-18); BUN/CREATININE RATIO 11.5 (5.4-32.0); CALCIUM 8.8 MG/DL (8.5-10.1); CHLORIDE 98 MMOL/L (99-107); CREATININE 4.42 MG/DL (0.60-1.10); GLUCOSE 337 MG/DL (70-104); POTASSIUM 4.5 MMOL/L (3.5-5.1); SODIUM 135 MMOL/L (135-145); TOTAL CARBON DIOXIDE 17.1 MMOL/L (24-32); TROPONIN I 0.51 NG/ML (0.0-0.05); eGFR 14 ML/MIN
[2020-01-24 15:03] LABS: ANISOCYTOSIS 3+; NUCLEATED RED BLOOD CELLS 7 /100WBC (0-0); PLATELET ESTIMATE NORMAL; TOTAL CELLS COUNTED 100
[2020-01-24 15:05] LABS: HYPOCHROMASIA 1+; POLYCHROMASIA 2+; ROULEAUX 1+; TARGET CELLS 1+
[2020-01-24] MEDS ORDERED: dextrose 50%-water 50ml dispensing syringe IV PRN ×2 (15:05)
[2020-01-24] MEDS ORDERED: dextrose ORAL solution 15 GM/59 ML bottle PO PRN ×2 (15:05)
[2020-01-24] MEDS ORDERED: glucagon, human recombinant 1mg kit SUBCUT PRN (15:05)
[2020-01-24] MEDS ORDERED: MESSAGE TO PHARMACY PO ONE (15:05)
[2020-01-24] MEDS: vancomycin/NS 1 GM ADD-VANTAGE 250 ML IV SCH (15:34)
--- NOTE | 2020-01-24 18:19 | NUR ---
Problems reprioritized. Patient report given, questions answered & plan of care reviewed with Alexi RN. Pt sleeping comfortably at change of shift, no signs of distress noted.
--- NOTE | 2020-01-24 18:30 | NUR ---
Patient in room ICU 2038. I have received report from Kim Carter RN and had the opportunity to ask questions and assume patient care.
[2020-01-24] MEDS: insulin Lispro (HumaLOG) vial - multi-dose SQ SCH ×2 (19:15→21:56)
[2020-01-24] MEDS: insulin glargine (Lantus) pen - multi-dose SQ SCH (21:55)
[2020-01-25] VITALS (25 sets, daily range): BP systolic 91–178; BP diastolic 22–90
[2020-01-25 00:51] LABS: ABG BASE EXCESS -10.1 mmol/L (-2.0-2.0); ABG HCO3 12.9 mmol/L (22.0-26.0); ABG OXYGEN SATURATION 99.7 % (94-97); ABG PCO2 (T) 21.3 mmHg (35.0-48.0); ABG PO2 (T) 546.1 mmHg (75.0-100.0); FCOHb 0.5 % (0.0-3.9); FMetHb 0.3 % (0.0-1.5); FO2Hb 98.9 % (94-97); PATIENT TEMPERATURE 36.4; RESPIRATORY RATE 14 b/min; TOTAL HEMOGLOBIN 12.7 G/dl (14.0-18.0)
[2020-01-25] MEDS: midodrine 5mg tablet PO SCH ×3 (01:20→16:23)
[2020-01-25] MEDS: piperacillin/tazo 3.375gm/50ml 50 ML IV SCH ×3 (01:20→16:23)
[2020-01-25] MEDS: hydrocortisone sod succ/PF 100mg/2ml inj. IV SCH ×4 (02:52→19:39)
[2020-01-25 04:06] LABS: BASOPHILS % (AUTO) 0.1 % (0-1); EOSINOPHILS % (AUTO) 0 % (0-6); HEMOGLOBIN 11.3 g/dl (14.0-17.9); MEAN CORPUSCULAR HGB CONC 31.3 g/dL (33.0-36.5); MONOCYTES # (AUTO) 0.4 X10'3 (0-0.9)
[2020-01-25 04:07] LABS: HEMATOCRIT 36.1 % (42.0-52.0); LYMPHOCYTES # (AUTO) 0.9 X10'3 (1.1-4.8); LYMPHOCYTES % (AUTO) 12.2 % (21-51); MEAN CORPUSCULAR HEMOGLOBIN 29.8 PG (27.0-31.0); MEAN CORPUSCULAR VOLUME 95.4 FL (78-98); MEAN PLATELET VOLUME 8.4 FL (7.4-10.4); NEUTROPHILS # (AUTO) 5.9 X10'3 (1.8-7.7); NEUTROPHILS % (AUTO) 82.7 % (42-75); PLATELET COUNT 94 X10'3 (140-440); RED BLOOD COUNT 3.79 X10'6 (4.70-6.10); RED CELL DISTRIBUTION WIDTH 26.3 % (11.5-14.5); WHITE BLOOD COUNT 7.2 X10'3 (4.5-11.0)
[2020-01-25 04:17] LABS: ALANINE AMINOTRANSFERASE 25 U/L (12-78); ALBUMIN 3.1 G/DL (3.4-5.0); ALBUMIN/GLOBULIN RATIO 0.6 (1.1-1.5); ALKALINE PHOSPHATASE 122 IU/L (46-116); ANION GAP 24 (8-16); ASPARTATE AMINO TRANSFERASE 15 U/L (10-37); BILIRUBIN,TOTAL 1.3 MG/DL (0.1-1.0); BLOOD UREA NITROGEN 61 MG/DL (7-18); CALCIUM 9.2 MG/DL (8.5-10.1); CHLORIDE 97 MMOL/L (99-107); CREATININE 5.08 MG/DL (0.60-1.10); GLUCOSE 231 MG/DL (70-104); MAGNESIUM 2.4 MG/DL (1.5-2.4); PHOSPHORUS 6.7 MG/DL (2.3-4.5); POTASSIUM 4.9 MMOL/L (3.5-5.1); SODIUM 138 MMOL/L (135-145); TOTAL CARBON DIOXIDE 17.1 MMOL/L (24-32); TOTAL PROTEIN 8.3 G/DL (6.4-8.2); eGFR 12 ML/MIN
--- NOTE | 2020-01-25 06:35 | NUR ---
Problems reprioritized. Patient report given, questions answered & plan of care reviewed with Chandrakant MEEKS.
--- NOTE | 2020-01-25 06:59 | NUR ---
Patient in room ICU 2038. I have received report from Tomás MEEKS and had the opportunity to ask questions and assume patient care.
[2020-01-25 07:41] LABS: ANISOCYTOSIS 3+; HYPOCHROMASIA 1+; NUCLEATED RED BLOOD CELLS 6 /100WBC (0-0); PLATELET ESTIMATE DECREASED; POLYCHROMASIA 2+; TARGET CELLS FEW; TOTAL CELLS COUNTED 100
[2020-01-25] MEDS: mineral oil/petrolatum, white cream 113gm jar TP SCH (08:00)
[2020-01-25] MEDS: heparin, porcine 5000 units/ml vial SQ SCH ×2 (08:00→19:42)
[2020-01-25] MEDS ORDERED: albumin (human) 25% 100ml IV 100 ML IV PRN (08:15)
[2020-01-25] MEDS ORDERED: heparin 1,000unit/ml 10ml vial 10 ML IV ONE (08:15)
[2020-01-25] MEDS ORDERED: heparin 1,000 units/ml 10ml inj IV ONE (08:15)
[2020-01-25] MEDS: NORepinephrine 8mg/ 250ml NS 250 ML IV SCH ×3 (08:53→20:52)
[2020-01-25] MEDS: pregabalin 25mg capsule PO SCH ×2 (09:23→19:43)
[2020-01-25] MEDS: pantoprazole 40mg Tablet.DR PO SCH (09:23)
[2020-01-25] MEDS: rifaximin 550mg tablet PO SCH ×2 (09:23→19:43)
[2020-01-25] MEDS: insulin Lispro (HumaLOG) vial - multi-dose SQ SCH ×3 (10:37→22:29)
--- NOTE | 2020-01-25 12:30 | NUR ---
Patient refuses Lunch time insulin, patient states that he is having dialysis and will not be eating at the time and does not want blood sugars to drop.
[2020-01-25 12:55] LABS: HBSAG SCREEN Negative (Negative)
--- NOTE | 2020-01-25 18:24 | NUR ---
Problems reprioritized. Patient report given, questions answered & plan of care reviewed with Mac RN.
[2020-01-25] MEDS: lactobacillus rhamnosus 10,000 MMU CELLS/CAPSULE PO SCH (19:43)
[2020-01-25] MEDS: insulin glargine (Lantus) pen - multi-dose SQ SCH (22:26)
[2020-01-26] VITALS (21 sets, daily range): BP systolic 102–132; BP diastolic 62–91
[2020-01-26] MEDS: hydrocortisone sod succ/PF 100mg/2ml inj. IV SCH ×4 (01:41→21:15)
[2020-01-26 03:17] LABS: EOSINOPHILS % (AUTO) 0 % (0-6); HEMOGLOBIN 11.8 g/dl (14.0-17.9); MONOCYTES # (AUTO) 0.5 X10'3 (0-0.9); PLATELET COUNT 84 X10'3 (140-440)
[2020-01-26 03:19] LABS: BASOPHILS % (AUTO) 0.2 % (0-1); HEMATOCRIT 37.1 % (42.0-52.0); MEAN CORPUSCULAR HEMOGLOBIN 30.4 PG (27.0-31.0); MEAN CORPUSCULAR HGB CONC 31.8 g/dL (33.0-36.5); MEAN CORPUSCULAR VOLUME 95.5 FL (78-98); MEAN PLATELET VOLUME 8.8 FL (7.4-10.4); NEUTROPHILS # (AUTO) 6.9 X10'3 (1.8-7.7); NEUTROPHILS % (AUTO) 81.8 % (42-75); RED BLOOD COUNT 3.89 X10'6 (4.70-6.10); RED CELL DISTRIBUTION WIDTH 26.2 % (11.5-14.5); WHITE BLOOD COUNT 8.5 X10'3 (4.5-11.0)
[2020-01-26 03:30] LABS: ALANINE AMINOTRANSFERASE 27 U/L (12-78); ALBUMIN 3.2 G/DL (3.4-5.0); ALBUMIN/GLOBULIN RATIO 0.6 (1.1-1.5); ALKALINE PHOSPHATASE 154 IU/L (46-116); ANION GAP 21 (8-16); ASPARTATE AMINO TRANSFERASE 21 U/L (10-37); BILIRUBIN,TOTAL 1.3 MG/DL (0.1-1.0); BLOOD UREA NITROGEN 59 MG/DL (7-18); BUN/CREATININE RATIO 12.6 (5.4-32.0); CALCIUM 9.1 MG/DL (8.5-10.1); CHLORIDE 98 MMOL/L (99-107); CREATININE 4.69 MG/DL (0.60-1.10); GLUCOSE 167 MG/DL (70-104); MAGNESIUM 2.4 MG/DL (1.5-2.4); POTASSIUM 4.5 MMOL/L (3.5-5.1); SODIUM 137 MMOL/L (135-145); TOTAL CARBON DIOXIDE 18.4 MMOL/L (24-32); TOTAL PROTEIN 8.5 G/DL (6.4-8.2); eGFR 13 ML/MIN
--- NOTE | 2020-01-26 07:03 | NUR ---
Patient in room ICU 2038. I have received report from leticia jhaveri, rn and had the opportunity to ask questions and assume patient care.
[2020-01-26 07:52] LABS: NUCLEATED RED BLOOD CELLS 17 /100WBC (0-0); TOTAL CELLS COUNTED 100
[2020-01-26 07:56] LABS: ANISOCYTOSIS 3+; HYPOCHROMASIA 1+; PLATELET ESTIMATE DECREASED; POLYCHROMASIA 1+; TARGET CELLS FEW; TEAR DROP CELLS FEW
[2020-01-26] MEDS: heparin, porcine 5000 units/ml vial SQ SCH ×2 (08:00→20:00)
[2020-01-26] MEDS: pantoprazole 40mg Tablet.DR PO SCH (08:36)
[2020-01-26] MEDS: piperacillin/tazo 3.375gm/50ml 50 ML IV SCH ×3 (08:37→16:23)
[2020-01-26] MEDS: lactobacillus rhamnosus 10,000 MMU CELLS/CAPSULE PO SCH ×2 (08:38→21:14)
[2020-01-26] MEDS: pregabalin 25mg capsule PO SCH ×2 (08:38→21:15)
[2020-01-26] MEDS: midodrine 5mg tablet PO SCH ×3 (08:39→16:22)
[2020-01-26] MEDS: rifaximin 550mg tablet PO SCH ×2 (08:40→21:15)
[2020-01-26] MEDS: mineral oil/petrolatum, white cream 113gm jar TP SCH (08:42)
[2020-01-26] MEDS: NORepinephrine 8mg/ 250ml NS 250 ML IV SCH ×2 (08:51→20:50)
[2020-01-26] MEDS: oxyCODONE/APAP 5-325mg tablet PO PRN (09:28)
[2020-01-26] MEDS: insulin Lispro (HumaLOG) vial - multi-dose SQ SCH ×2 (10:24→14:28)
--- NOTE | 2020-01-26 13:25 | NUR ---
Reassessment: Pt PO 75-100% avg recent meals improving since admit; requests double meal trays TID. Pt seen by RD regarding optimal portion sizing regarding renal/DM guidelines on HD in addition to verbal high protein ed. RD reviewed pt menu and educated pt on available alternatives. Will send double proteins BIDLD; pt aware and RD notified dietary of pt preferences. 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 Pt is agreeable to Kush packet BID to mix w/ water given wound healing needs; MD notified. LBM 01/25. Latest ht/wt error changed to 127in ht and 13.9kg wt true ht and wt 67in. and 103.9kg making true BMI 36. Will continue to monitor for additional protein needs on HD given sepsis DX. Rec: 1. continue renal/carb controlled diet; double proteins BIDLD 2. Kush packet BID w/ minimum 120ml water for wound healing needs 3. phos binder w/ meals IF MD agreeable 4. routine bowel care 5. MVI for wound healing 6. wts w/ HD Addendum: 01/26/20 at [address] Amended: Links added.
[2020-01-26] MEDS: vancomycin/NS 1 GM ADD-VANTAGE 250 ML IV SCH (14:25)
[2020-01-26] MEDS: ondansetron/PF 4mg/2ml inj IV PRN (18:35)
[2020-01-26] MEDS: ARGININE/GLUTAMINE/CALCIUM BMB (JUVEN 19.3GM PKT) 1 EACH POWD.PACK PO SCH (20:00)
--- NOTE | 2020-01-26 20:34 | NUR ---
pt to ct via bed. pt placed on transport monitor. when ct completed pt back to room.
[2020-01-26] MEDS: insulin glargine (Lantus) pen - multi-dose SQ SCH (21:00)
[2020-01-26] MEDS: enoxaparin 100mg/ml syringe SUBCUT SCH (22:10)
[2020-01-27] VITALS (23 sets, daily range): BP systolic 89–110; BP diastolic 51–73
[2020-01-27] MEDS: piperacillin/tazo 3.375gm/50ml 50 ML IV SCH ×3 (01:08→16:48)
--- NOTE | 2020-01-27 01:28 | NUR ---
performed random glucose check- 34 1 amp d50 pushed will monitor
[2020-01-27] MEDS: midodrine 5mg tablet PO SCH ×3 (01:36→16:36)
[2020-01-27] MEDS: hydrocortisone sod succ/PF 100mg/2ml inj. IV SCH ×4 (01:46→20:00)
[2020-01-27 03:35] LABS: BASOPHILS % (AUTO) 0.1 % (0-1); EOSINOPHILS % (AUTO) 0 % (0-6); HEMATOCRIT 39.5 % (42.0-52.0); HEMOGLOBIN 12.4 g/dl (14.0-17.9); LYMPHOCYTES # (AUTO) 0.7 X10'3 (1.1-4.8); MEAN CORPUSCULAR HEMOGLOBIN 30.1 PG (27.0-31.0); MONOCYTES # (AUTO) 0.4 X10'3 (0-0.9)
[2020-01-27 03:38] LABS: LYMPHOCYTES % (AUTO) 7.3 % (21-51); MEAN CORPUSCULAR HGB CONC 31.3 g/dL (33.0-36.5); MEAN CORPUSCULAR VOLUME 96.4 FL (78-98); MONOCYTES % (AUTO) 4.1 % (2-12); NEUTROPHILS # (AUTO) 8.1 X10'3 (1.8-7.7); NEUTROPHILS % (AUTO) 88.5 % (42-75); PLATELET COUNT 78 X10'3 (140-440); RED CELL DISTRIBUTION WIDTH 26.2 % (11.5-14.5); WHITE BLOOD COUNT 9.1 X10'3 (4.5-11.0)
[2020-01-27 03:48] LABS: ALANINE AMINOTRANSFERASE 27 U/L (12-78); ALBUMIN 3.2 G/DL (3.4-5.0); ALBUMIN/GLOBULIN RATIO 0.6 (1.1-1.5); ALKALINE PHOSPHATASE 136 IU/L (46-116); ANION GAP 20 (8-16); ASPARTATE AMINO TRANSFERASE 22 U/L (10-37); BILIRUBIN,TOTAL 1.3 MG/DL (0.1-1.0); BLOOD UREA NITROGEN 73 MG/DL (7-18); BUN/CREATININE RATIO 13.7 (5.4-32.0); CHLORIDE 97 MMOL/L (99-107); CREATININE 5.31 MG/DL (0.60-1.10); GLUCOSE 136 MG/DL (70-104); MAGNESIUM 2.4 MG/DL (1.5-2.4); PHOSPHORUS 7.7 MG/DL (2.3-4.5); SODIUM 135 MMOL/L (135-145); TOTAL CARBON DIOXIDE 17.7 MMOL/L (24-32); TOTAL PROTEIN 8.6 G/DL (6.4-8.2); eGFR 11 ML/MIN
--- NOTE | 2020-01-27 06:32 | NUR ---
Patient in room ICU 2045. I have received report from Nataliia MEEKS and had the opportunity to ask questions and assume patient care.
[2020-01-27 06:44] LABS: PLATELET ESTIMATE DECREASED
[2020-01-27 06:45] LABS: ANISOCYTOSIS 3+
[2020-01-27 06:48] LABS: HYPOCHROMASIA 1+; NUCLEATED RED BLOOD CELLS 9 /100WBC (0-0); POLYCHROMASIA 1+; TOTAL CELLS COUNTED 100
[2020-01-27] MEDS: rifaximin 550mg tablet PO SCH ×2 (07:25→20:00)
[2020-01-27] MEDS: pantoprazole 40mg Tablet.DR PO SCH (07:25)
[2020-01-27] MEDS: lactobacillus rhamnosus 10,000 MMU CELLS/CAPSULE PO SCH ×2 (07:26→20:00)
[2020-01-27] MEDS: pregabalin 25mg capsule PO SCH ×2 (07:26→20:00)
[2020-01-27] MEDS: ARGININE/GLUTAMINE/CALCIUM BMB (JUVEN 19.3GM PKT) 1 EACH POWD.PACK PO SCH ×2 (08:00→20:00)
[2020-01-27] MEDS ORDERED: heparin 1,000 units/ml 10ml inj IV ONE (08:00)
[2020-01-27] MEDS: mineral oil/petrolatum, white cream 113gm jar TP SCH (08:00)
[2020-01-27] MEDS ORDERED: albumin (human) 25% 100ml IV 100 ML IV PRN (08:00)
[2020-01-27] MEDS ORDERED: heparin 1,000unit/ml 10ml vial 10 ML IV ONE (08:00)
[2020-01-27] MEDS: NORepinephrine 8mg/ 250ml NS 250 ML IV SCH ×2 (08:49→20:48)
[2020-01-27] MEDS: sevelamer carbonate 800mg tablet PO SCH (18:00)
--- NOTE | 2020-01-27 18:19 | NUR ---
Problems reprioritized. Patient report given, questions answered & plan of care reviewed with Nataliia MEEKS. Pt. offers no complaints, watching t.v.
[2020-01-27] MEDS: enoxaparin 100mg/ml syringe SUBCUT SCH (20:00)
[2020-01-27] MEDS: famotidine 20mg tablet PO SCH (20:00)
[2020-01-27] MEDS: insulin glargine (Lantus) pen - multi-dose SQ SCH (21:30)
[2020-01-27] MEDS: insulin Lispro (HumaLOG) vial - multi-dose SQ SCH (21:31)
[2020-01-28] VITALS (23 sets, daily range): BP systolic 78–127; BP diastolic 14–77
[2020-01-28] MEDS: midodrine 5mg tablet PO SCH ×3 (00:34→15:20)
[2020-01-28] MEDS: piperacillin/tazo 3.375gm/50ml 50 ML IV SCH ×2 (00:34→18:45)
[2020-01-28] MEDS: oxyCODONE/APAP 5-325mg tablet PO PRN ×2 (00:34→15:20)
[2020-01-28] MEDS: hydrocortisone sod succ/PF 100mg/2ml inj. IV SCH ×4 (02:25→21:05)
--- NOTE | 2020-01-28 03:49 | NUR ---
llevophed increased to 0.5 mcg/kg/min
[2020-01-28 04:07] LABS: BASOPHILS # (AUTO) 0.1 X10'3 (0-0.2); BASOPHILS % (AUTO) 0.6 % (0-1); EOSINOPHILS % (AUTO) 0 % (0-6); HEMATOCRIT 40.3 % (42.0-52.0); HEMOGLOBIN 12.7 g/dl (14.0-17.9); LYMPHOCYTES # (AUTO) 0.5 X10'3 (1.1-4.8); LYMPHOCYTES % (AUTO) 5.8 % (21-51); MEAN CORPUSCULAR HEMOGLOBIN 30.3 PG (27.0-31.0); MEAN CORPUSCULAR HGB CONC 31.5 g/dL (33.0-36.5); MEAN CORPUSCULAR VOLUME 96.5 FL (78-98); MEAN PLATELET VOLUME 9.4 FL (7.4-10.4); MONOCYTES # (AUTO) 0.6 X10'3 (0-0.9); MONOCYTES % (AUTO) 6.8 % (2-12); NEUTROPHILS # (AUTO) 8.2 X10'3 (1.8-7.7); NEUTROPHILS % (AUTO) 86.8 % (42-75); PLATELET COUNT 79 X10'3 (140-440); RED BLOOD COUNT 4.18 X10'6 (4.70-6.10); RED CELL DISTRIBUTION WIDTH 25.8 % (11.5-14.5); WHITE BLOOD COUNT 9.4 X10'3 (4.5-11.0)
[2020-01-28 04:17] LABS: ALANINE AMINOTRANSFERASE 28 U/L (12-78); ALBUMIN 2.9 G/DL (3.4-5.0); ALBUMIN/GLOBULIN RATIO 0.6 (1.1-1.5); ALKALINE PHOSPHATASE 126 IU/L (46-116); ANION GAP 23 (8-16); ASPARTATE AMINO TRANSFERASE 21 U/L (10-37); BILIRUBIN,TOTAL 1.3 MG/DL (0.1-1.0); BLOOD UREA NITROGEN 83 MG/DL (7-18); BUN/CREATININE RATIO 13.6 (5.4-32.0); CALCIUM 9.4 MG/DL (8.5-10.1); CHLORIDE 97 MMOL/L (99-107); CREATININE 6.12 MG/DL (0.60-1.10); GLUCOSE 186 MG/DL (70-104); MAGNESIUM 2.4 MG/DL (1.5-2.4); PHOSPHORUS 8.6 MG/DL (2.3-4.5); POTASSIUM 5.1 MMOL/L (3.5-5.1); SODIUM 136 MMOL/L (135-145); TOTAL CARBON DIOXIDE 16.3 MMOL/L (24-32); TOTAL PROTEIN 8.1 G/DL (6.4-8.2); eGFR 10 ML/MIN
[2020-01-28 04:34] LABS: NUCLEATED RED BLOOD CELLS 8 /100WBC (0-0); TOTAL CELLS COUNTED 100
[2020-01-28 04:35] LABS: ANISOCYTOSIS 3+; HYPOCHROMASIA 1+; PLATELET ESTIMATE DECREASED; POLYCHROMASIA 1+
[2020-01-28] MEDS: NORepinephrine 8mg/ 250ml NS 250 ML IV SCH ×2 (08:47→20:46)
[2020-01-28] MEDS: rifaximin 550mg tablet PO SCH ×2 (09:15→20:57)
[2020-01-28] MEDS: famotidine 20mg tablet PO SCH ×2 (09:15→20:57)
[2020-01-28] MEDS: sevelamer carbonate 800mg tablet PO SCH ×3 (09:16→18:45)
[2020-01-28] MEDS: lactobacillus rhamnosus 10,000 MMU CELLS/CAPSULE PO SCH ×2 (09:16→20:57)
[2020-01-28] MEDS ORDERED: piperacillin/tazo 3.375gm/50ml 50 ML IV SCH (09:26)
[2020-01-28] MEDS: pregabalin 25mg capsule PO SCH ×2 (09:34→20:57)
[2020-01-28] MEDS: mineral oil/petrolatum, white cream 113gm jar TP SCH (09:56)
[2020-01-28] MEDS: ARGININE/GLUTAMINE/CALCIUM BMB (JUVEN 19.3GM PKT) 1 EACH POWD.PACK PO SCH ×2 (09:56→20:57)
[2020-01-28] MEDS ORDERED: normal saline 1000ml 100 ML IV PRN (10:25)
[2020-01-28] MEDS ORDERED: heparin 1,000 units/ml 10ml inj HE ONE ×2 (10:30)
[2020-01-28] MEDS ORDERED: VANCOMYCIN LEVEL IV ONE (13:30)
[2020-01-28] MEDS: ondansetron/PF 4mg/2ml inj IV PRN (14:18)
[2020-01-28] MEDS: insulin Lispro (HumaLOG) vial - multi-dose SQ SCH (14:38)
--- NOTE | 2020-01-28 18:20 | NUR ---
Patient in room ICU 2045. I have received report from Ivette MEEKS and had the opportunity to ask questions and assume patient care.
[2020-01-28] MEDS ORDERED: vancomycin/NS 1 GM ADD-VANTAGE 250 ML IV ONE ×2 (20:00→21:05)
[2020-01-28] MEDS: enoxaparin 100mg/ml syringe SUBCUT SCH (20:57)
[2020-01-28] MEDS: insulin glargine (Lantus) pen - multi-dose SQ SCH (21:48)
[2020-01-29] VITALS (15 sets, daily range): BP systolic 80–129; BP diastolic 19–81
[2020-01-29] MEDS: midodrine 5mg tablet PO SCH ×2 (00:04→07:58)
[2020-01-29] MEDS: hydrocortisone sod succ/PF 100mg/2ml inj. IV SCH ×3 (02:26→14:30)
[2020-01-29] MEDS: NORepinephrine 8mg/ 250ml NS 250 ML IV SCH (02:42)
[2020-01-29 02:54] LABS: HEMATOCRIT 41.5 % (42.0-52.0); MEAN CORPUSCULAR HGB CONC 31.3 g/dL (33.0-36.5); MEAN CORPUSCULAR VOLUME 95.8 FL (78-98); MEAN PLATELET VOLUME 9.3 FL (7.4-10.4); PLATELET COUNT 87 X10'3 (140-440); RED BLOOD COUNT 4.34 X10'6 (4.70-6.10); RED CELL DISTRIBUTION WIDTH 25.9 % (11.5-14.5); WHITE BLOOD COUNT 10.3 X10'3 (4.5-11.0)
[2020-01-29] MEDS ORDERED: VANCOMYCIN LEVEL IV SCH (03:00)
[2020-01-29 03:08] LABS: ALANINE AMINOTRANSFERASE 29 U/L (12-78); ALBUMIN 3.1 G/DL (3.4-5.0); ALBUMIN/GLOBULIN RATIO 0.6 (1.1-1.5); ALKALINE PHOSPHATASE 132 IU/L (46-116); ANION GAP 22 (8-16); ASPARTATE AMINO TRANSFERASE 20 U/L (10-37); BILIRUBIN,TOTAL 1.4 MG/DL (0.1-1.0); BLOOD UREA NITROGEN 84 MG/DL (7-18); BUN/CREATININE RATIO 14.5 (5.4-32.0); CALCIUM 9.3 MG/DL (8.5-10.1); CHLORIDE 97 MMOL/L (99-107); CREATININE 5.78 MG/DL (0.60-1.10); GLUCOSE 265 MG/DL (70-104); MAGNESIUM 2.4 MG/DL (1.5-2.4); PHOSPHORUS 8.5 MG/DL (2.3-4.5); POTASSIUM 5.5 MMOL/L (3.5-5.1); SODIUM 136 MMOL/L (135-145); TOTAL CARBON DIOXIDE 17.2 MMOL/L (24-32); TOTAL PROTEIN 8.3 G/DL (6.4-8.2); VANCOMYCIN,RANDOM 37.5 UG/ML; eGFR 10 ML/MIN
[2020-01-29 03:12] LABS: ANISOCYTOSIS 3+; HYPOCHROMASIA 1+; NUCLEATED RED BLOOD CELLS 12 /100WBC (0-0); PLATELET ESTIMATE DECREASED; POLYCHROMASIA 1+; TOTAL CELLS COUNTED 100
--- NOTE | 2020-01-29 06:23 | NUR ---
Problems reprioritized. Patient report given, questions answered & plan of care reviewed with Kim Carter RN.
--- NOTE | 2020-01-29 06:46 | NUR ---
Patient in room ICU 2045. I have received report from JEANNA Mills and had the opportunity to ask questions and assume patient care.
[2020-01-29] MEDS: pregabalin 25mg capsule PO SCH (07:57)
[2020-01-29] MEDS: piperacillin/tazo 3.375gm/50ml 50 ML IV SCH (07:57)
[2020-01-29] MEDS: sevelamer carbonate 800mg tablet PO SCH ×2 (07:58→13:00)
[2020-01-29] MEDS: lactobacillus rhamnosus 10,000 MMU CELLS/CAPSULE PO SCH (07:58)
[2020-01-29] MEDS: rifaximin 550mg tablet PO SCH (07:58)
[2020-01-29] MEDS: famotidine 20mg tablet PO SCH (07:58)
[2020-01-29] MEDS: ARGININE/GLUTAMINE/CALCIUM BMB (JUVEN 19.3GM PKT) 1 EACH POWD.PACK PO SCH (08:00)
[2020-01-29] MEDS ORDERED: vancomycin/NS 1 GM ADD-VANTAGE 250 ML IV PRN (08:00)
[2020-01-29] MEDS ORDERED: morphine 10mg/ml inj. IM PRN (11:50)
--- NOTE | 2020-01-29 12:39 | NUR ---
CHERI d/c'd from right SC. Patient tolerated well and cannula was intact with no knots present. Patient bled a bit longer than expected, pressure held for 10 minutes and then dressed with 4x4 and silk tape. Also received order to D/C tanisha in patient's right groin; Roderick d/c'd and cannula intact. Patient bled from this site as well so pressure was held for 15 minutes until bleeding halted and then site was dressed with 4x4s and silk tape.
[2020-01-29] MEDS: mineral oil/petrolatum, white cream 113gm jar TP SCH (14:31)
--- NOTE | 2020-01-29 14:48 | NUR ---
Problems reprioritized. Patient report given, questions answered & plan of care reviewed with Alexi RN. Pt sleeping comfortably. All pt needs met at this time.
--- NOTE | 2020-01-29 14:50 | NUR ---
Received report from Kim Carter RN, had opportunity to ask questions. pt is newly comfort care.
--- NOTE | 2020-01-29 15:22 | NUR ---
F/u 01/28: Pt has been made DNR w/ comfort care liberalized to regular diet. LBM 01/26. Will continue to monitor. Rec: 1. routine bowel care Addendum: 01/29/20 at [address] Amended: Links added.
--- NOTE | 2020-01-29 15:32 | NUR ---
pt arrived to Ortho room 4017 with all belongings, pt is on comfort care. will make pt comfortable as orders allow.
[2020-01-29] MEDS ORDERED: ondansetron 4mg rapidly disintigrating tab PO PRN (15:45)
[2020-01-29] MEDS: morphine 10mg/0.5ml (conc. morphine) oral syringe PO PRN ×3 (15:55→21:19)
--- NOTE | 2020-01-29 18:30 | NUR ---
Patient in room ORTHO 4017. I have received report from Alexi RN and had the opportunity to ask questions and assume patient care.
--- NOTE | 2020-01-29 18:36 | NUR ---
Problems reprioritized. Patient report given, questions answered & plan of care reviewed with Cate MEEKS.
[2020-01-29] MEDS ORDERED: sennosides/docusate sodium tablet PO SCH (20:00)
[2020-01-29] MEDS ORDERED: docusate sod 100mg capsule PO SCH (20:00)
--- NOTE | 2020-01-30 06:32 | NUR ---
Problems reprioritized. Patient report given, questions answered & plan of care reviewed with Diandra MEEKS .
--- NOTE | 2020-01-30 07:01 | NUR ---
Patient in room ORTHO 4017. I have received report from JEANNA Esposito and had the opportunity to ask questions and assume patient care.
[2020-01-30 10:00] VITALS: BP 76/47
--- NOTE | 2020-01-30 13:09 | NUR ---
PICC REMOVED, NO COMPLICATIONS. ASSISTED TRANSPORT TEAM WITH MOVING PT TO [facility]. REPORT CALLED TO CONCHITA AT [facility]. PT TRANSFERRED IN STABLE CONDITION.
== END 2020-01-30 12:15 | DRG 871 ==
LOC: ER 08:56 → ED HOLD 11:44 → ICU 2S 13:19 → ORTHO 4S 01-29 15:32
PROVIDERS: ADMIT Internal Medicine Critical Care Medicine; ATTEND Internal Medicine Critical Care Medicine
PROC: 5A1D70Z Performance of Urinary Filtration, Intermittent, Less than 6 Hours Per Day (ICD-10-PCS; 2020-01-23)
PROC: 5A09357 Assistance with Respiratory Ventilation, Less than 24 Consecutive Hours, Continuous Positive Airway Pressure (ICD-10-PCS; 2020-01-24)
PROC: 04HK33Z Insertion of Infusion Device into Right Femoral Artery, Percutaneous Approach (ICD-10-PCS; principal; 2020-01-25)
PROC: 5A1D70Z Performance of Urinary Filtration, Intermittent, Less than 6 Hours Per Day (ICD-10-PCS; 2020-01-25)
PROC: 5A09357 Assistance with Respiratory Ventilation, Less than 24 Consecutive Hours, Continuous Positive Airway Pressure (ICD-10-PCS; 2020-01-25)
PROC: 5A1D70Z Performance of Urinary Filtration, Intermittent, Less than 6 Hours Per Day (ICD-10-PCS; 2020-01-28)
DX: A41.9 Sepsis, unspecified organism (principal); N18.6 End stage renal disease; R57.0 Cardiogenic shock; I26.99 Other pulmonary embolism without acute cor pulmonale; E87.2 Acidosis; I13.2 Hypertensive heart and chronic kidney disease with heart failure and with stage 5 chronic kidney disease, or end stage renal disease; I31.1 Chronic constrictive pericarditis; R18.8 Other ascites; Z94.0 Kidney transplant status; I95.89 Other hypotension; I25.9 Chronic ischemic heart disease, unspecified; E11.22 Type 2 diabetes mellitus with diabetic chronic kidney disease; I27.29 Other secondary pulmonary hypertension; E11.51 Type 2 diabetes mellitus with diabetic peripheral angiopathy without gangrene; E11.649 Type 2 diabetes mellitus with hypoglycemia without coma; I50.812 Chronic right heart failure; K74.60 Unspecified cirrhosis of liver; Z51.5 Encounter for palliative care; Z66 Do not resuscitate; Z99.2 Dependence on renal dialysis
CPT/HCPCS: 36415; 36573; 36600; 71045; 71048; 71275; 76000; 76937; 80048; 80053; 80202; 82140; 82803; 82948; 83605; 83690; 83735; 84100; 84145; 84443; 84484; 85007; 85018; 85025; 85610; 85730; 87040; 87340; 93005; 93306; 93308; 94660; 94760; 96374; 97110; 97116; 97162; 97530; 99291; C9113; G0378; J1644; J1650; J1720; J1815; J2310; J2405; J2543; J3370; J7030; J7040; J7131; P9047